=== PATIENT | male | born 1960 | race Caucasian/White ===

== ENCOUNTER → 2019-09-10 | Day surgery (SDC) | payer BC ==
[2019-09-07 12:39] LABS: Urine WBC None Seen /hpf (0 - 3)
[2019-09-07 12:55] LABS: Urine Bacteria NONE SEEN /hpf (None Seen); Urine Blood Negative /uL (Negative); Urine Specific Gravity 1.019 (1.001-1.035)
[2019-09-07 12:58] LABS: Basophils # (auto) 0.1 uL; Basophils % (auto) 0.7 % (0.0-2.0); Eosinophils # (auto) 0.1 uL; Eosinophils % (auto) 0.7 % (0.0-7.0); Hematocrit 48.7 % (41.0-53.0); Hemoglobin 16.4 g/dL (13.5-17.5); Lymphocytes # (auto) 1.8 uL; Lymphocytes % (auto) 18.4 % (10.0-50.0); Mean Corpuscular Hemoglobin 32.1 pg (28.0-32.0); Mean Corpuscular Hgb Conc. 33.7 g/dL (32.0-36.0); Mean Corpuscular Volume 95.4 fL (80.0-100.0); Monocytes # (auto) 0.6 uL; Monocytes % (auto) 5.8 % (0.0-12.0); Neutrophils # (auto) 7.4 uL; Neutrophils % (auto) 74.4 % (37.0-80.0); Platelet Count (auto) 147 10^3/uL (140-450); Red Blood Cells 5.11 10^6/uL (4.5-5.90); Red Cell Distribution Width 12.6 % (11.8-14.3)
[2019-09-07 13:06] LABS: Albumin 4.2 g/dL (3.4-5.0); Potassium 4.1 mmol/L (3.5-5.1)
[2019-09-07 13:09] LABS: BUN/Creatinine Ratio 25.9; Bilirubin, Total 0.7 mg/dL (0.2-1.0); INR 0.98 (0.9-1.15); Partial Thromboplastin Time 25.1 sec (23.64-32.05); Total Protein 7.5 g/dL (6.4-8.2)
[~2019-09-10] VITALS: Ht 185.4 cm; Wt 104.3 kg
[~2019-09-10] MED LIST: ATOR40TA52 PO; BUPIVACAINE W/ EPINEPH 0.25% INJ 50ML MDV ONE; HYDR25TA4 PO; HYDROmorphone HCL 2 MG/ML VL IV PRN; LIDOCAINE 1% HCL (LOCAL ANESTH.) INJ 20ML MDV ONE; LIDOCAINE W/ EPINEPHRINE 2% INJ 20ML VIAL ONE; LISI40TA PO; METOCLOPRAMIDE HCL 5MG/ml INJ 2ml VIAL IV PRN; ONDANSETRON HCL 4 MG/2 ML VIAL IV PRN; PREG200C19 PO; PROPOFOL 10 MG/ML 20 ML IV ONE; SUCCINYLCHOLINE CHLORIDE 20 MG/ML 10ML VIAL IV ONE; ceFAZolin 1GM/50ML 100 ML IV ONE
[2019-09-10 09:20] VITALS: BP 148/71
== END | disposition home or self-care (01) ==
LOC: SUR 06:13
PROVIDERS: ATTEND Anesthesiology Pain Medicine
DX: G57.21 Lesion of femoral nerve, right lower limb (principal); G57.91 Unspecified mononeuropathy of right lower limb; I10 Essential (primary) hypertension; J44.9 Chronic obstructive pulmonary disease, unspecified; I25.10 Atherosclerotic heart disease of native coronary artery without angina pectoris; E78.00 Pure hypercholesterolemia, unspecified; E66.9 Obesity, unspecified; Z86.19 Personal history of other infectious and parasitic diseases; Z68.30 Body mass index [BMI] 30.0-30.9, adult
CPT/HCPCS: 36415; 63650; 72100; 80053; 81001; 85025; 85610; 85730; 93005; 95972; A4215; C1778; J0330; J0690; J2001; J2704; 76001

== ENCOUNTER 2019-12-21 09:18 | Emergency (ER) | payer BC, SELFPAY ==
[~2019-12-21] VITALS: Ht 185.4 cm; Wt 113.4 kg
[~2019-12-21 09:18] MED LIST changes: -BUPIVACAINE W/ EPINEPH 0.25% INJ 50ML MDV ONE; -HYDROmorphone HCL 2 MG/ML VL IV PRN; -LIDOCAINE 1% HCL (LOCAL ANESTH.) INJ 20ML MDV ONE; -LIDOCAINE W/ EPINEPHRINE 2% INJ 20ML VIAL ONE; -METOCLOPRAMIDE HCL 5MG/ml INJ 2ml VIAL IV PRN; -ONDANSETRON HCL 4 MG/2 ML VIAL IV PRN; -PROPOFOL 10 MG/ML 20 ML IV ONE; -SUCCINYLCHOLINE CHLORIDE 20 MG/ML 10ML VIAL IV ONE; -ceFAZolin 1GM/50ML 100 ML IV ONE
[2019-12-21 11:07] VITALS: BP 165/93
== END 2019-12-21 11:00 | disposition home or self-care (01) ==
LOC: EDBD 09:18 → ER 09:18
DX: J20.9 Acute bronchitis, unspecified (principal); E78.5 Hyperlipidemia, unspecified; I10 Essential (primary) hypertension; Z20.828 Contact with and (suspected) exposure to other viral communicable diseases
CPT/HCPCS: 71045; 87070; 87635; 87804; 87807; 87880; 99001

== ENCOUNTER 2020-02-29 07:21 | Emergency (ER) | payer BC, SELFPAY ==
[~2020-02-29] VITALS: Ht 185.4 cm; Wt 113.4 kg
[2020-02-29 08:00] LABS: Basophils # (auto) 0.1 10 ^3/uL (0-0.2); Eosinophils # (auto) 0.1 10 ^3/uL (0-0.8); Lymphocytes # (auto) 1.4 10 ^3/uL (0.4-5.4); Monocytes # (auto) 0.4 10 ^3/uL (0-1.3)
[2020-02-29 08:02] LABS: Basophils % (auto) 0.9 % (0.0-2.0); Eosinophils % (auto) 0.8 % (0.0-7.0); Hematocrit 52.9 % (41.0-53.0); Hemoglobin 18.1 g/dL (13.5-17.5); Lymphocytes % (auto) 16.5 % (10.0-50.0); Mean Corpuscular Hgb Conc. 34.3 g/dL (32.0-36.0); Mean Corpuscular Volume 93.4 fL (80.0-100.0); Neutrophils # (auto) 6.5 10 ^3/uL (1.6-8.6); Neutrophils % (auto) 76.8 % (37.0-80.0); Nucleated Red Blood Cells % 0.1 %; Platelet Count (auto) 173 10^3/uL (140-450); Red Blood Cells 5.66 10^6/uL (4.5-5.90); Red Cell Distribution Width 14.2 % (11.8-14.3); White Blood Cell 8.5 10^3/uL (4.4-10.8)
[2020-02-29 08:05] LABS: Urine Bacteria NONE SEEN /hpf (None Seen); Urine Blood Negative /uL (Negative); Urine Mucus FEW (None Seen); Urine Specific Gravity 1.015 (1.001-1.035); Urine WBC <1 /hpf (0 - 3)
[2020-02-29 08:18] LABS: Albumin 4.1 g/dL (3.4-5.0); Calcium 9.5 mg/dL (8.5-10.1); Potassium 4.1 mmol/L (3.5-5.1)
[2020-02-29 08:19] LABS: Acetaminophen < 2.0 ug/mL (10-30); Salicylate 4.8 mg/dL (2.8-20.0)
[2020-02-29 08:23] LABS: Bilirubin, Total 0.6 mg/dL (0.2-1.0)
[2020-02-29 08:25] LABS: Amphetamine Screen, Urine NEGATIVE (NEGATIVE); Barbiturate Scree,Urine NEGATIVE (NEGATIVE); Benzodiazephine Screen, Urine NEGATIVE (NEGATIVE); Cannabinoid Screen, Urine POSITIVE (NEGATIVE); Cocaine Screen, Urine NEGATIVE (NEGATIVE)
[2020-02-29 08:31] LABS: Opiate Scree,Urine NEGATIVE (NEGATIVE); Phencyclidine Screen, Urine NEGATIVE (NEGATIVE)
[2020-02-29] MEDS ORDERED: LORazepam 0.5 MG TAB PO ONE ×2 (09:00→12:30)
[2020-02-29 12:10] VITALS: BP 154/96
== END 2020-02-29 13:16 | disposition home or self-care (01) ==
LOC: ER 07:21
DX: F32.9 Major depressive disorder, single episode, unspecified (principal); F10.10 Alcohol abuse, uncomplicated; F12.10 Cannabis abuse, uncomplicated; F17.210 Nicotine dependence, cigarettes, uncomplicated; I10 Essential (primary) hypertension; E78.5 Hyperlipidemia, unspecified
CPT/HCPCS: 36415; 71046; 80053; 80307; 80320; 80329; 81001; 85025; 93005

== ENCOUNTER 2020-03-10 08:13 | Day surgery (SDC) | payer BC ==
[2020-03-08 10:35] LABS: Basophils # (auto) 0 10 ^3/uL (0-0.2); Basophils % (auto) 0.6 % (0.0-2.0); Eosinophils # (auto) 0.1 10 ^3/uL (0-0.8); Hematocrit 50.9 % (41.0-53.0); Lymphocytes # (auto) 1.1 10 ^3/uL (0.4-5.4); Lymphocytes % (auto) 12.6 % (10.0-50.0); Mean Corpuscular Hemoglobin 31.9 pg (28.0-32.0); Mean Corpuscular Hgb Conc. 33.4 g/dL (32.0-36.0); Mean Corpuscular Volume 95.6 fL (80.0-100.0); Monocytes # (auto) 0.7 10 ^3/uL (0-1.3); Monocytes % (auto) 8.8 % (0.0-12.0); Neutrophils # (auto) 6.6 10 ^3/uL (1.6-8.6); Nucleated Red Blood Cells % 0.1 %; Platelet Count (auto) 156 10^3/uL (140-450); Red Blood Cells 5.33 10^6/uL (4.5-5.90); Red Cell Distribution Width 13.5 % (11.8-14.3); White Blood Cell 8.5 10^3/uL (4.4-10.8)
[2020-03-08 10:39] LABS: Urine Bacteria NONE SEEN /hpf (None Seen); Urine Blood Negative /uL (Negative); Urine WBC <1 /hpf (0 - 3)
[2020-03-08 10:56] LABS: INR 0.99 (0.9-1.15); Partial Thromboplastin Time 25.3 sec (23.64-32.05)
[2020-03-08 11:07] LABS: Albumin 4.1 g/dL (3.4-5.0); Calcium 10.4 mg/dL (8.5-10.1); Potassium 4.7 mmol/L (3.5-5.1)
[2020-03-08 11:10] LABS: BUN/Creatinine Ratio 28.2; Bilirubin, Total 0.5 mg/dL (0.2-1.0); Total Protein 8.3 g/dL (6.4-8.2)
[~2020-03-10] VITALS: Ht 185.4 cm; Wt 108.9 kg
[2020-03-10] MEDS ORDERED: ceFAZolin 1GM/50ML 100 ML IV ONE (08:53)
[2020-03-10] MEDS ORDERED: BUPIVACAINE W/ EPINEPH 0.25% INJ 50ML MDV ONE (10:07)
[2020-03-10] MEDS ORDERED: LIDOCAINE W/ EPINEPHRINE 2% INJ 20ML VIAL ONE ×2 (10:07→11:32)
[2020-03-10] MEDS ORDERED: MIDAZOLAM HCL 1MG/1ML-2 ML VIAL ONE (10:30)
[2020-03-10] MEDS ORDERED: PROPOFOL 10 MG/ML 20 ML IV ONE ×2 (10:31→11:37)
[2020-03-10] MEDS ORDERED: LIDOCAINE 1% (LOCAL ANESTH.) PF 5ml SDV ONE (10:31)
[2020-03-10] MEDS ORDERED: ONDANSETRON HCL 4 MG/2 ML VIAL IV PRN (11:15)
[2020-03-10] MEDS ORDERED: HYDROmorphone HCL 2 MG/ML VL IV PRN ×2 (11:15)
[2020-03-10] MEDS ORDERED: NALOXONE HCL 0.4 MG/ML VIAL IV PRN (11:15)
[2020-03-10] MEDS ORDERED: VANCOMYCIN HCL 1000 MG VL ONE (11:40)
[2020-03-10 12:38] VITALS: BP 144/62
== END 2020-03-10 16:14 | disposition home or self-care (01) ==
LOC: SUR 08:13
PROVIDERS: ATTEND Anesthesiology Pain Medicine
DX: G58.9 Mononeuropathy, unspecified (principal); G57.21 Lesion of femoral nerve, right lower limb; G57.91 Unspecified mononeuropathy of right lower limb; E66.9 Obesity, unspecified; J44.9 Chronic obstructive pulmonary disease, unspecified; I10 Essential (primary) hypertension; E66.01 Morbid (severe) obesity due to excess calories; G47.33 Obstructive sleep apnea (adult) (pediatric); G62.9 Polyneuropathy, unspecified; F17.200 Nicotine dependence, unspecified, uncomplicated; Z86.19 Personal history of other infectious and parasitic diseases; Z68.39 Body mass index [BMI] 39.0-39.9, adult; Z98.890 Other specified postprocedural states; Z79.899 Other long term (current) drug therapy; Z11.59 Encounter for screening for other viral diseases
CPT/HCPCS: 36415; 63650; 63685; 72100; 80053; 81001; 85025; 85610; 85730; 95972; A4215; C1820; J0690; J2250; J2704; J3370; U0003; 76001; 77003

== ENCOUNTER 2024-07-13 06:51 | Emergency (ER) | payer BC ==
[~2024-07-13] VITALS: Ht 185.4 cm; Wt 115.8 kg
[~2024-07-13 06:51] MED LIST changes: -LISI40TA PO; +LISI40TA16 PO
[2024-07-13 07:48] LABS: Basophils # (auto) 0.1 10 ^3/uL (0-0.2); Basophils % (auto) 1.4 % (0.0-2.0); Eosinophils # (auto) 0.2 10 ^3/uL (0-0.8); Eosinophils % (auto) 3.2 % (0.0-7.0); Hematocrit 47.6 % (41.0-53.0); Hemoglobin 16.5 g/dL (13.5-17.5); Lymphocytes # (auto) 1.6 10 ^3/uL (0.4-5.4); Mean Corpuscular Hemoglobin 31.2 pg (28.0-32.0); Mean Corpuscular Hgb Conc. 34.5 g/dL (32.0-36.0); Mean Corpuscular Volume 90.2 fL (80.0-100.0); Monocytes # (auto) 0.4 10 ^3/uL (0-1.3); Monocytes % (auto) 6.6 % (0.0-12.0); Neutrophils # (auto) 3.8 10 ^3/uL (1.6-8.6); Neutrophils % (auto) 62.8 % (37.0-80.0); Platelet Count (auto) 172 10^3/uL (140-450); Red Blood Cells 5.28 10^6/uL (4.5-5.90); Red Cell Distribution Width 13.5 % (11.8-14.3); White Blood Cell 6.1 10^3/uL (4.4-10.8)
[2024-07-13 07:54] LABS: Chloride 107 mmol/L (98-107); Potassium 4.6 mmol/L (3.5-5.1); Sodium 138 mmol/L (136-145)
[2024-07-13 07:55] LABS: Anion Gap 4 (5-15); Calcium 10.1 mg/dL (8.7-10.4); Carbon Dioxide 27 mmol/L (20-31)
[2024-07-13 08:00] LABS: BUN/Creatinine Ratio 15.3 (10.0-20.0); Blood Urea Nitrogen 15 mg/dL (9-23); Glucose 123 mg/dL (74-106)
[2024-07-13 08:31] VITALS: BP 149/72; PULSE 56; RESP 17; TEMP 97.7; O2SAT 97
[2024-07-13] MEDS ORDERED: PANT40TA2 PO (08:35)
[2024-07-13] MEDS ORDERED: PRED10TA PO (08:35)
[2024-07-13] MEDS ORDERED: PRED20TA2 PO (08:35)
[2024-07-13] MEDS: predniSONE 20 MG TAB PO ONE (08:58)
== END 2024-07-13 09:03 | disposition home or self-care (01) ==
LOC: ER 06:51
DX: G51.0 Bell's palsy (principal); E78.5 Hyperlipidemia, unspecified; I10 Essential (primary) hypertension
CPT/HCPCS: 36415; 70450; 80048; 85025; 93005; 99284; J7512